=== PATIENT | female | born 1950 | race African-American/Black ===

== ENCOUNTER 2024-12-03 21:36 | Emergency (ER) | payer SELFPAY ==
[~2024-12-03] VITALS: Ht 175.3 cm; Wt 82.0 kg
[2024-12-03 21:47] VITALS: O2SAT 98
[2024-12-03] MEDS ORDERED: LABETALOL 5MG/ML 4ML INJ IV ONE (23:30)
[2024-12-04 00:50] LABS: BASOPHILS % 0.7 % (0.0-2.0); EOSINOPHILS % 0.2 % (0.0-5.0); HEMATOCRIT. 38.5 % (36.0-48.0); HEMOGLOBIN. 12.7 g/dL (12.0-16.0); LYMPHOCYTES % 27.6 % (20.0-50.0); MEAN CORPUSCULAR HEMOGLOBIN 29.4 pg (28.0-32.0); MEAN CORPUSCULAR HGB CONC 32.9 g/dL (31.0-37.0); MEAN CORPUSCULAR VOLUME 89.6 fL (81.0-99.0); MONOCYTES % 5.5 % (2.0-8.0); PLATELET 225 x1000/uL (130-400); RED CELL DISTRIBUTION WIDTH 13.3 % (11.6-14.6); WHITE BLOOD COUNT 10.9 x1000/uL (4.5-11.0)
[2024-12-04 00:59] LABS: CHLORIDE 102 mEq/L (98-107); POTASSIUM 4.5 mEq/L (3.5-5.1); SODIUM 138 mEq/L (136-145)
[2024-12-04 01:00] LABS: CALCIUM 8.6 mg/dL (8.7-10.4); CARBON DIOXIDE 31 mEq/L (21-32)
[2024-12-04 01:05] LABS: CREATININE 1.4 mg/dL (0.6-1.0); GLUCOSE 393 mg/dL (70-105); UREA NITROGEN BLOOD 32 mg/dL (9-23)
[2024-12-04 01:06] LABS: TROPONIN I HIGH SENSITIVITY 7 ng/L (3.0-34)
[2024-12-04 02:30] VITALS: TEMP 36.8
[2024-12-04] MEDS: INSULIN REGULAR (HUMULIN R) 1000UNITS/10ML VIAL SUBCUT NR (02:51)
[2024-12-04] MEDS: LABETALOL 5MG/ML 4ML INJ IV NR (02:55)
[2024-12-04] MEDS ORDERED: METF-415 MT (04:05)
[2024-12-04] MEDS ORDERED: LOSA50TA41 MT (04:05)
[2024-12-04 04:16] VITALS: BP 123/67; PULSE 86; RESP 12; O2SAT 98
== END 2024-12-04 05:04 | disposition home or self-care (01) ==
LOC: ER 21:36
DX: I10 Essential (primary) hypertension (principal); E11.65 Type 2 diabetes mellitus with hyperglycemia; Z91.148 Patient's other noncompliance with medication regimen for other reason
CPT/HCPCS: 99285; 70450; 71045; 36415; 93005; 96374; 80048; 82962; 85025; 84484; 96372; J3490